=== PATIENT | male | born 1945 | race Caucasian/White ===

== ENCOUNTER 2017-12-11 15:40 | Inpatient (IN) | payer OTHER, MEDICARE ==
[~2017-12-11] VITALS: Ht 172.7 cm; Wt 99.3 kg
[2017-12-11 15:41] VITALS: BP 101/59
[2017-12-11] MEDS ORDERED: LISINOPRIL5 MG PO (15:45)
[2017-12-11] MEDS ORDERED: LIPITOR40 MG PO (15:45)
[2017-12-11] MEDS ORDERED: NITROGLYCERIN0.4 MG SUBLING (15:45)
[2017-12-11] MEDS ORDERED: IMDUR 30 MG TAB30 M1 PO (15:45)
[2017-12-11 15:55] LABS: ABSOLUTE BASOPHILS 0.1 thou/uL (0.0-0.2); ABSOLUTE EOSINOPHILS 0.1 thou/uL (0.0-0.7); ABSOLUTE LYMPHOCYTES 1.7 thou/uL (0.8-5.3); ABSOLUTE MONOCYTES 0.5 thou/uL (0.0-1.2); ABSOLUTE NEUTROPHILS 4.2 thou/uL (1.6-8.1); BASOPHILS 0.9 %; HEMATOCRIT 38.5 % (42.0-52.0); HEMOGLOBIN 13.1 gm/dL (14.0-18.0); LYMPHOCYTES 25.8 %; MCH 30.8 pg (26.0-34.0); MCHC 34.1 g/dL (28.0-37.0); MCV 90.2 fL (80.0-100.0); MONOCYTES 7.6 %; MPV 7.1 fl. (7.2-11.1); NUCLEATED RBCS 0 /100WBC; PLATELET COUNT* 253 thou/uL (150-400); POLYS 63.7 %; RBC 4.27 mil/uL (4.50-6.00); WBC 6.5 thou/uL (4.0-11.0)
[2017-12-11 16:04] LABS: ANION GAP 11 mmol/L (7-16); BUN 17 mg/dL (7-18); CALCIUM 8.5 mg/dL (8.5-10.1); CHLORIDE 108 mmol/L (98-107); CO2 23 mmol/L (21-32); CREATININE 1.1 mg/dL (0.6-1.3); GLUCOSE 121 mg/dL (70-99); POTASSIUM 3.5 mmol/L (3.5-5.1); SODIUM 142 mmol/L (136-145)
[2017-12-11 16:07] LABS: APTT 24.3 Seconds (25.0-31.3); INR 1.1
[2017-12-11 16:10] LABS: ALBUMIN 3.5 g/dL (3.4-5.0); ALKALINE PHOSPHATASE 64 U/L (46-116); LIPASE 119 U/L (73-393); SGOT 12 U/L (15-37); SGPT 24 U/L (30-65); TOTAL BILIRUBIN 1.3 mg/dL (<0.1-1.0); TOTAL PROTEIN 6.3 g/dL (6.4-8.2); TROPONIN-I LEVEL <0.06 ng/mL (<0.06)
[2017-12-11 17:40] LABS: URINE BILIRUBIN NEGATIVE (Negative); URINE BLOOD NEGATIVE (Negative); URINE CLARITY CLEAR; URINE COLOR YELLOW; URINE GLUCOSE-RANDOM NEGATIVE (Negative); URINE KETONES TRACE (Negative); URINE LEUKOCYTES-REFLEX NEGATIVE (Negative); URINE NITRITE-REFLEX NEGATIVE (Negative); URINE PROTEIN TRACE (Negative); URINE SPECIFIC GRAVITY 1.025 (1.005-1.030); URINE UROBILINOGEN 0.2 E.U./dl (0.2-1.0)
[2017-12-11 18:46] VITALS: BP 101/59
[2017-12-11 19:40] VITALS: BP 100/64
[2017-12-12] VITALS: BP 146/53
[2017-12-12 04:00] VITALS: BP 106/64
[2017-12-12 04:30] LABS: ABSOLUTE EOSINOPHILS 0.2 thou/uL (0.0-0.7); ABSOLUTE LYMPHOCYTES 2.5 thou/uL (0.8-5.3); ABSOLUTE MONOCYTES 0.6 thou/uL (0.0-1.2); ABSOLUTE NEUTROPHILS 3.8 thou/uL (1.6-8.1); BASOPHILS 0.6 %; EOSINOPHILS 2.8 %; HEMATOCRIT 38.2 % (42.0-52.0); HEMOGLOBIN 12.9 gm/dL (14.0-18.0); LYMPHOCYTES 34.7 %; MCH 30.7 pg (26.0-34.0); MCHC 33.7 g/dL (28.0-37.0); MCV 91.1 fL (80.0-100.0); MONOCYTES 8.8 %; MPV 7.5 fl. (7.2-11.1); NUCLEATED RBCS 0 /100WBC; PLATELET COUNT* 224 thou/uL (150-400); POLYS 53.1 %; RDW-CV 13.9 % (10.5-14.5); WBC 7.1 thou/uL (4.0-11.0)
[2017-12-12 04:40] LABS: CREATININE 0.8 mg/dL (0.6-1.3)
--- NOTE | 2017-12-12 06:06 | NUR ---
A&O X4 CALM COOPERITVE. 1ST SR-SB ON THE MONITOR. PT HR 36-38 DURNING THE NIGHT PT ASYMPYOMATIC. RA. ADLIB. SEE MAR. SEE CHARTING. HOURLY ROUNDING FOR SAFETY.
[2017-12-12 08:00] VITALS: BP 136/65
[2017-12-12 11:51] VITALS: BP 137/74
[2017-12-12 12:54] VITALS: BP 137/74
--- NOTE | 2017-12-12 13:01 | EKG ---
[place] [address] ELECTROCARDIOGRAM REPORT Name: STAS FORRESTER Room: [address] IN .R.#: [id number] Admission: 12/11/17 Attend Phys: Meet Isaac MD Discharge: Date of : 47 Report #: [id number] THIS REPORT FOR: //name// [facility] ED Test Date: 2017-12-11 Test Time: 15:42:40 Pat Name: STAS FORRESTER Department: Room: Gender: M Taker Away: Oracio LOW : 1945 Requested By: Gregor Smith Order Number: [id number] MD: Stas Younger Measurements Intervals [place] Rate: 68 P: 24 DE: 179 QRS: -31 QRSD: 108 T: 78 QT: 406 QTc: 432 Interpretive Statements Sinus rhythm Left axis deviation Low voltage, precordial leads Consider anterior infarct No previous ECG available for comparison Electronically Signed On 12-12-2017 13:01:28 CDT by Stas Younger [email or web address] <ELECTRONICALLY SIGNED> By: Stas Younger MD, [facility] 12/12/17 1301 [id number] Stas Younger MD, FACC /EPI
--- NOTE | 2017-12-12 13:36 | NUR ---
ASSUMED CARE OF PT ASSESSED AND DOCUMENTED. SEE CHART. PT D/C'D TO HOME. ALL CONSULTS OK WITH D/C. EDUCATION GIVEN RE FOLLOW-UPS, MEDICATIONS, AND DR ORDERS. ALL BELONGINGS PACKED UP AND LEFT WITH P CCOMPANIED BY STAFF AND .
== END 2017-12-12 13:41 | disposition home or self-care (01) | DRG 641 ==
LOC: M.ERS 15:40 → M.TBA-ER 17:21 → M.2W 17:21
PROVIDERS: Family Medicine; ADMIT Internal Medicine
DX: E86.0 Dehydration (principal); R00.1 Bradycardia, unspecified; I10 Essential (primary) hypertension; E78.5 Hyperlipidemia, unspecified; I25.10 Atherosclerotic heart disease of native coronary artery without angina pectoris; T67.5XXA Heat exhaustion, unspecified, initial encounter; X58.XXXA Exposure to other specified factors, initial encounter; Y93.89 Activity, other specified; Y92.89 Other specified places as the place of occurrence of the external cause; Y99.8 Other external cause status; Z88.0 Allergy status to penicillin; Z95.1 Presence of aortocoronary bypass graft